=== PATIENT | male | born 1970 | race Caucasian/White ===

== ENCOUNTER → 2022-10-04 09:39 | Outpatient (BNVA) | payer OTHER, SELFPAY | PROVIDERS: Family Provider Internal Medicine; PCP Internal Medicine; Referring Provider Nurse Practitioner Family; Visit Provider Specialist | DX: M65.331 Trigger finger, right middle finger (principal); M79.641 Pain in right hand; Z01.818 Encounter for other preprocedural examination | CPT/HCPCS: 36415; 73130; 80053; 83036; 85025 ==

== ENCOUNTER 2022-10-29 05:29 | Day surgery (SDC) | payer OTHER, SELFPAY ==
[2022-10-28 09:28] VITALS: BMI 27.3
[2022-10-29] VITALS (7 sets, daily range): BP systolic 123–142; BP diastolic 86–98; PULSE 70–83; RESP 15–18; TEMP 36.2–36.5; O2SAT 94–98
[2022-10-29] MEDS: CELEcoxib 200 mg Capsule 400 MG PO (06:05)
[2022-10-29] MEDS: gabapentin 300 mg Capsule PO (06:06)
[2022-10-29] MEDS: acetaminophen 1,000 MG/100 ML PIGGYBACK 400 MG IV (06:07)
[2022-10-29] MEDS: sodium chloride 0.9% 1,000 ML 30 ML IV (06:07)
--- NOTE | 2022-10-29 06:41 | ANES.PREANE2 ---
Pre-Anesthetic Assessment Height/Weight: Height 1.73 m Weight 81.647 kg Temp Pulse Resp BP Pulse Ox O2 Del Method 97.6 F 70 18 142/95 97 Room Air 10/29/22 05:54 10/29/22 05:54 10/29/22 05:54 10/29/22 05:54 10/29/22 05:54 10/29/22 06:02 Operation Date: 10/29/22 07:00 Proposed Procedures p RIGHT MIDDLE FINGER TRIGGER FINGER RELEASE 38816,M65.30(Right) - Latisha tSout MD Familial anesthetic complications: None Was Beta Brian taken within 24 hours: Yes Was Clonidine taken within 24 hours: N/A Last intake: Intake Last Liquid Date 10/28/22 Last Liquid Time 22:00 Last Solid Date 10/28/22 Last Solid Time 20:00 Social No alcohol and No tobacco Exam alert, oriented x 3, clear to auscultation bilaterally and regular rate & rhythm Airway Mallampati: Class II Dentition: chipped and other (missing) CV/HEM Coronary Artery Disease (stents in 2017 - no longer on blood thinners) and Hypertension WPW s/ p ablation in 2017 GI Gastroesophageal Reflux Disease Metabolic Hyperlipidemia Anesthetic Plan ASA status: 3 Anesthesia: General Risk of > 500 ml blood loss (7ml/kg in children): No Medications/Allergies Home Medications Medication Instructions Recorded Confirmed Last Taken Type amlodipine 10 mg tablet 10 mg PO DAILY 10/04/22 10/28/22 10/28/22 History atorvastatin 40 mg tablet 40 mg PO DAILY 10/04/22 10/28/22 10/28/22 History metoprolol succinate 25 mg 25 mg PO DAILY 10/04/22 10/28/22 10/28/22 History tablet,extended release 24 hr omeprazole magnesium 20 mg 20 mg PO DAILY 10/04/22 10/28/22 10/28/22 History tablet,delayed release (Prilosec OTC) Allergies Allergy/AdvReac Type Severity Reaction Status Date / Time Penicillins Allergy ALGY-Rash Verified 10/18/22 10:30 Current Medications Generic Name Dose Route Start Last Admin Trade Name Freq PRN Reason Stop Dose Admin Sodium Chloride 1,000 mls @ 30 mls/hr 10/29/22 05:45 10/29/22 06:07 Sodium Chloride 0.9% IV 10/30/22 05:44 30 mls/hr .Q24H TAVARES Administration PFSH Anesthesia Medical History (Updated 10/18/22 @ 10:54 by Scott Trevino NP) Coronary artery disease High cholesterol Hypertension Wtwyg-Nznxchtfu-Cczse (WPW) syndrome hx of ablation 2016 Surgical History (Updated 10/18/22 @ 10:54 by Scott Trevino NP) H/O heart artery stent 2017 Hx of cholecystectomy Family History Denies family history of Clotting disorder Anesthesia complication Bleeding disorder Stroke Social History Smoking and tobacco status: never smoked Alcohol intake: current Alcohol intake frequency: holidays/special occasions only Substance/Drug Use: current Substance/Drug use frequency: Special occassions/opportunity only Data Anesthesia Cardiac Studies: No Data to Display
--- NOTE | 2022-10-29 06:53 | W.PM.OPSUD ---
Surgery/Procedure H&P Update DATE OF PROCEDURE: October 29, 2022 DATE H&P PERFORMED: 10/04/22 H&P UPDATE INFORMATION: I have reviewed H&P completed within last 30 days, I have examined patient prior to procedure, No changes to prior documentation and H&P is in [facility] [place] on date indicated PLANNED PROCEDURE: Operation Date: 10/29/22 07:00 Proposed Procedures p RIGHT MIDDLE FINGER TRIGGER FINGER RELEASE [id number],M65.30(Right) - Latisha Stout MD Related Problem List Diagnoses (1) Trigger finger of right hand:
[2022-10-29] MEDS: ceFAZolin 2,000 MG in sodium chloride 0.9% (plus) 50 ML 100 MG IV (07:10)
--- NOTE | 2022-10-29 08:11 | PM.OP ---
Operative Report Date of procedure: October 29, 2022 Pre-op diagnosis: Right long finger triggering Post-op diagnosis: Right long finger triggering Post-op findings: Inflammation and cystic changes Procedure done: Release right middle finger triggering Implants: None Surgeon: Latisha Stout Chain Mender: None Anesthesia: General (Per ET tube, ASA 3) Estimated blood loss (mL): 1 Tourniquet time (min): 16 (At 250 mmHg and) IV fluids (mL): 500 Urine output (mL): 0 (No Ladd) Complications: None Findings: Significant inflammatory response about the flexor tendons and A1 nat. Condition: stable Disposition: PACU (Then return to same-day surgery for discharge to home) Brief History: This is a 52 year old male patient here today for release of his right hand middle finger trigger finger. Patient states the pain has been been occurring for a year. Patient has no numbness or tingling. Patient states the majority of the pain is to the base of the middle finger. Patient states the finger locks frequently. Patient states he has had cortisone injections previously however they are no longer helping.? The patient notes that he has had prior trigger finger release to the opposite left hand. The patient was seen in the office, discussion was undertaken regarding the risks and benefits of trigger finger release. He understood and wished to proceed. Questions were answered and consents were signed. Procedure: Patient was brought to the operating theater. He was placed on the operating room table. General anesthesia, intubated, ASA 3 was administered without incident. The patient was given 2 g of IV Ancef without reaction. He did have a history of penicillin allergy and was monitored during administration. A tourniquet was placed high on the arm and was elevated following exsanguination. Tourniquet time was 16 minutes. Surgical pause was performed prior to commencement of the surgical procedure. At the time of the surgical pause we identified the site and side of surgery. We also identified the patient's identity and appropriate administration of IV antibiotics. Following the surgical pause, an incision was made along the distal palmar crease beneath the long finger. Dissection continued through the skin to the subcutaneous tissues using a scalpel. Blunt dissection was then utilized to spread soft tissues and allow access to the A1 nat. It was then incised longitudinally and sharply using a knife. This was accomplished without difficulty and atraumatically. Once the A1 nat was released, tendons were brought up out of the wound and evaluated. There were no gross masses on the tendons, but the A1 nat was noted to be quite inflamed with an actual cystic structure on it. Tendons were returned to normal position. We then irrigated the wound and subsequently closed it with 3-0 nylon with an interrupted mattress type suture. Following closure of the wound, the wound was injected with bupivacaine into the subcutaneous tissues as a local anesthetic. Sterile dressing was then placed consisting of OpSite, fluffed fluffs, sterile soft roll, and an Rodrick wrap. The patient was returned to recovery in satisfactory condition. He will be discharged home to follow-up with me in the office. There were no complications and no specimens. Related Problem List Diagnoses (1) Trigger finger of right hand:
--- NOTE | 2022-10-29 12:08 | ANE.PACU2 ---
Inpatient post-anesthesia follow up: Airway intact: Yes Vital signs: Temperature 97.2 F Pulse Rate 76 Respiratory Rate 17 Blood Pressure 124/96 Pulse Oximetry 95 Oxygen Delivery Me thod Room Air Oxygen Flow Rate Fraction of Inspir ed Oxygen Hydration adequate: Yes Nausea and vomiting: Yes Pain level: 1 Mental status: Baseline
== END 2022-10-29 08:40 | disposition home or self-care (01) ==
PROVIDERS: PCP Nurse Practitioner Family; Visit Provider Specialist
PROC: (CPT 26055; principal; 2022-10-29 07:00)
DX: M65.331 Trigger finger, right middle finger (principal); I25.10 Atherosclerotic heart disease of native coronary artery without angina pectoris; Z95.5 Presence of coronary angioplasty implant and graft; Z79.01 Long term (current) use of anticoagulants; I10 Essential (primary) hypertension; K21.9 Gastro-esophageal reflux disease without esophagitis; E78.5 Hyperlipidemia, unspecified
CPT/HCPCS: 26055; J0131; J0690; J1100; J2405; J2704; J3010; J3490; J7030